=== PATIENT | male | born 1945 | race Caucasian/White ===

== ENCOUNTER 2019-07-22 10:18 | Outpatient (RCR) | payer MEDICARE, SELFPAY ==
[2019-05-02 13:51] LABS: INR 1.6; Prothrombin Time 18.8 Seconds (11.1-14.7)
[2019-05-12 14:42] LABS: INR 3.1; Prothrombin Time 31.3 Seconds (11.1-14.7)
[2019-05-20 15:46] LABS: INR 2.5; Prothrombin Time 26.4 Seconds (11.1-14.7)
[2019-06-20 14:46] LABS: INR 2.2
[2019-07-22 11:12] LABS: INR 2.2; Prothrombin Time 23.6 Seconds (11.1-14.7)
== END 2019-07-31 23:59 | disposition home or self-care (01) ==
LOC: ANHLAB 10:18
PROVIDERS: PCP Family Medicine; Visit Provider Family Medicine
DX: I48.91 Unspecified atrial fibrillation (principal)
CPT/HCPCS: 36415; 85610

== ENCOUNTER 2019-10-29 08:31 | Outpatient (RCR) | payer MEDICARE, SELFPAY ==
[2019-08-21 18:05] LABS: INR 1.9
[2019-09-01 09:24] LABS: INR 2.2; Prothrombin Time 23.8 Seconds (11.1-14.7)
[2019-09-15 08:57] LABS: INR 2.7
[2019-09-29 11:58] LABS: INR 2.7; Prothrombin Time 28.5 Seconds (11.1-14.7)
[2019-10-29 09:06] LABS: INR 2.4; Prothrombin Time 25.5 Seconds (11.1-14.7)
== END 2019-11-19 23:59 | disposition home or self-care (01) ==
LOC: ANHLAB 08:31
PROVIDERS: PCP Family Medicine; Visit Provider Family Medicine
DX: I48.91 Unspecified atrial fibrillation (principal); I48.92 Unspecified atrial flutter
CPT/HCPCS: 36415; 85610

== ENCOUNTER 2019-11-17 00:13 | Outpatient (CLI) | payer MEDICARE, SELFPAY ==
[2019-11-17 15:58] LABS: SARS-CoV-2 RNA PCR Negative
== END 2019-11-17 00:14 | disposition home or self-care (01) ==
LOC: ANHCOVIDDT 00:13
PROVIDERS: PCP Family Medicine; Visit Provider Plastic Surgery
DX: Z01.812 Encounter for preprocedural laboratory examination (principal); Z20.828 Contact with and (suspected) exposure to other viral communicable diseases
CPT/HCPCS: 87635; C9803; U0003

== ENCOUNTER 2019-11-19 00:36 | Day surgery (SDC) | payer MEDICARE, SELFPAY ==
[2019-08-14 10:54] VITALS: BMI 31.1
--- NOTE | 2019-10-23 10:08 | PC.NURSE ---
PT STATES NO CHANGE IN HEALTH HX SINCE LAST INTERVIEW ON 08/14/19
--- NOTE | 2019-11-12 09:51 | PC.NURSE ---
PT.STATES NO CHANGE IN MEDICAL,SURGICAL OR MEDICATIONS SINCE LAST INTERVIEW.
--- NOTE | 2019-11-18 20:45 | HP_ITS ---
DATE OF SERVICE: 11/19/2019 PREOPERATIVE DIAGNOSIS: Bilateral carpal tunnel syndrome, severe on the left. HISTORY: The patient is a 74-year-old, he is a right-hand dominant male presented in August with new complaints of carpal tunnel syndrome involving motor and sensory systems. He said he has had this for 6 or 7 years that involves the radial digits with numbness. Splint therapy has been tried and found to be insufficient. He has elected to go ahead with surgery on the left. He prefers local anesthetic and understands that the scar, there could be nerve injury, could be hematoma, infection, bruising, slow recovery of sensation, and a possible need for therapy he would like to proceed. ALLERGIES: HE IS NOT KNOWN TO BE ALLERGIC TO ANY MEDICATION. MEDICATION: His current medication list includes 1. Amlodipine. 2. Metoprolol. 3. Metformin. 4. Triamterene. 5. Hydrochlorothiazide. 6. Warfarin. 7. Simvastatin. 8. Flecainide. PAST SURGICAL HISTORY: Include laminectomy, total knee replacement on the right in 1993. He has had a peroneal nerve release in 1995. He has had a cyst removed. He is a nonsmoker. REVIEW OF SYSTEMS: Indicates atrial fibrillation, high blood pressure. Again, he has type 2 diabetes. FAMILY HISTORY: Noncontributory. SOCIAL HISTORY: Lives in [place]. He is retired from [employer]. PHYSICAL EXAMINATION: VITAL SIGNS: He is 6 feet tall, weighs 230 pounds. GENERAL: He is alert, cooperative, and informative. HEENT: Unremarkable. CHEST: Clear to auscultation. HEART: Regular rate and rhythm by palpation. ABDOMEN: Soft, nontender. EXTREMITY EXAM: Specifically reveals on the left thenar wasting, difficulty flexing his thumb, difficulty opposing the thumb and small finger. Wrist compression test was positive. ASSESSMENT: Bilateral carpal tunnel syndrome. PLAN: Left open carpal tunnel release under local anesthetic. D I MT: Farnaz
--- NOTE | 2019-11-19 07:20 | WPDHPUPDATE1 ---
History and Physical Update Update Date/Time: 11/19/19 07:20 History and Physical has been reviewed, including an updated exam of the patient. There are NO changes in the patient's condition. Risks, benefits, and alternatives have been discussed and questions answered. Patient agrees to proceed with procedure.
[2019-11-19 08:50] VITALS: BP 151/79; PULSE 70; RESP 20; TEMP 36.3; O2SAT 100
--- NOTE | 2019-11-19 09:03 | PM.OP ---
Procedure Note - Brief Procedure Note - Brief Date of procedure: 11/19/19 Pre-op diagnosis: Left Carpal Tunnel Syndrome Post-op diagnosis: same Procedure performed: LOCTR Anesthesia: local Surgeon: Jorge Holland MD Estimated blood loss (mL): 0 Drains: No Packing: No Pathology: none sent Complications: No immediate complications Condition: stable Disposition: same day
[2019-11-19] MEDS: LIDO 1%/EPINEPHRINE 1:100,000 20 ML VIAL 10 ML INFILTRATE (09:05)
[2019-11-19 09:11] VITALS: BP 158/95; PULSE 74; RESP 18; O2SAT 95
[2019-11-19 09:21] VITALS: BP 162/98; PULSE 74; RESP 18; O2SAT 95
[2019-11-19 09:31] VITALS: BP 156/102; PULSE 61; RESP 16; O2SAT 94
[2019-11-19 09:41] VITALS: BP 158/109; PULSE 63; RESP 18; O2SAT 95
--- NOTE | 2019-11-19 09:43 | PM.OP ---
Procedure Note - Brief Procedure Note - Brief Date of procedure: 11/19/19 Pre-op diagnosis: Left Carpal Tunnel Syndrome Post-op diagnosis: same Surgeon: Jorge Holland MD
[2019-11-19 09:46] VITALS: BP 132/81; PULSE 62; RESP 16; O2SAT 97
--- NOTE | 2019-11-19 09:49 | PM.PROC ---
Procedure Note - Detailed Date of procedure: 11/19/19 Pre-op diagnosis: Left Carpal Tunnel Syndrome Post-op diagnosis: same Description of procedure: The patient's hand was marked as healing in preop. He was rolled to the operating room and placed supine on the operating table. A time-out was held and confirmed. The extremity was prepped and draped in usual fashion. The marking was redone and the site locally infiltrated with 1% lidocaine with epinephrine. No tourniquet was used. The incision was made as marked and dissection was carried bluntly through the subcutaneous tissue to the palmar fascia. This and the carpal ligament were incised with a 15. Blade. The transverse carpal ligament was very robust. Under 3 point retraction the ligament was divided proximally and distally to completely release it. No unusual anatomy was noted. The wound was closed with interrupted 4-0 nylon suture. A small bandage was applied and he is discharged from the operating room instructions in wound care follow-up. He has a prescription for hydrocodone 5/ 10. Surgeon: Jorge Holland MD
== END 2019-11-19 09:56 | disposition home or self-care (01) ==
PROVIDERS: PCP Family Medicine; Visit Provider Plastic Surgery
PROC: (CPT 64721; principal; 2019-11-19 09:30)
DX: G56.02 Carpal tunnel syndrome, left upper limb (principal); I10 Essential (primary) hypertension; E11.9 Type 2 diabetes mellitus without complications; Z79.84 Long term (current) use of oral hypoglycemic drugs; I48.91 Unspecified atrial fibrillation; Z96.651 Presence of right artificial knee joint; Z79.01 Long term (current) use of anticoagulants; Z87.891 Personal history of nicotine dependence
CPT/HCPCS: 64721; A9270

== ENCOUNTER 2020-02-21 09:13 | Outpatient (RCR) | payer MEDICARE, SELFPAY ==
[2019-11-29 09:38] LABS: Prothrombin Time 22.1 Seconds (11.1-14.7)
[2019-12-29 14:36] LABS: INR 2.2; Prothrombin Time 23.8 Seconds (11.1-14.7)
[2020-01-29 13:19] LABS: INR 1.4; Prothrombin Time 16.5 Seconds (11.1-14.7)
[2020-02-05 17:59] LABS: INR 2.1; Prothrombin Time 22.8 Seconds (11.1-14.7)
[2020-02-21 09:43] LABS: INR 2.9; Prothrombin Time 29.5 Seconds (11.1-14.7)
== END 2020-02-27 23:59 | disposition home or self-care (01) ==
LOC: ANHLAB 09:13
PROVIDERS: PCP Family Medicine; Visit Provider Family Medicine
DX: I48.91 Unspecified atrial fibrillation (principal); I48.92 Unspecified atrial flutter
CPT/HCPCS: 36415; 85610

== ENCOUNTER 2020-03-16 08:48 | Outpatient (CLI) | payer MEDICARE, SELFPAY ==
--- NOTE | 2020-03-16 11:00 | NEURO_ITS ---
Patient Number: [id number] Impression: # Non-insulin dependent diabetic complains of increasing numbness of the hands. # Underlying neuropathy. # Superimposed Carpal Tunnel Syndrome bilaterally. 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 # Needle/EMG exam abnormal Nerve Conduction Studies Anti Sensory Summary Table Stim Site NR Peak (ms) P-T Amp (?V) Site1 Site2 Delta-P (ms) Dist (cm) Christiano (m/s) Left Median Anti Sensory (2-3nd Digit) NO RESPONSE Wrist NR Wrist 2-3nd Digit 14.0 Wrist NR Wrist 2-3nd Digit 14.0 Right Median Anti Sensory (2-3nd Digit) Wrist 6.6 9.8 Wrist 2-3nd Digit 6.6 14.0 21 Wrist 7.1 10.3 Wrist 2-3nd Digit 6.6 14.0 21 Left Radial Anti Sensory (Base 1st Digit) Wrist 2.5 6.8 Wrist Base 1st Digit 2.5 0.0 Right Radial Anti Sensory (Base 1st Digit) Wrist 3.0 4.5 Wrist Base 1st Digit 3.0 0.0 Left Ulnar Anti Sensory (5th Digit) Wrist 3.0 6.4 Wrist 5th Digit 3.0 14.0 47 Right Ulnar Anti Sensory (5th Digit) Wrist 3.1 4.4 Wrist 5th Digit 3.1 14.0 45 Motor Summary Table Stim Site NR Onset (ms) O-P Amp (mV) Site1 Site2 Delta-0 (ms) Dist (cm) Christiano (m/s) Left Median Motor (Abd Poll Brev) NO RESPONSE Wrist NR Elbow Wrist 26.0 Elbow NR Right Median Motor (Abd Poll Brev) NO RESPONSE Wrist NR Elbow Wrist 26.0 Elbow NR Left Ulnar Motor (Abd Dig Minimi) Wrist 2.9 5.4 A Elbow Wrist 6.6 31.0 47 A Elbow 9.5 4.2 B Elbow Wrist 4.8 25.0 52 B Elbow 7.7 4.0 Right Ulnar Motor (Abd Dig Minimi) Wrist 2.7 5.7 A Elbow Wrist 5.7 30.0 53 A Elbow 8.4 2.7 F Wave Studies NR F-Lat (ms) L-R F-Lat (ms) Left Median (Mrkrs) (Abd Poll Brev) NO RESPONSE NR Right Median (Mrkrs) (Abd Poll Brev) NO RESPONSE NR Left Ulnar (Mrkrs) (Abd Dig Min) 31.36 1.01 Right Ulnar (Mrkrs) (Abd Dig Min) 30.35 1.01 EMG Side Muscle Nerve Root Ins Act Fibs Amp Dur Recrt Comment Right 1stDorInt Ulnar C8-T1 Nml Nml Nml Nml Nml Right Ext Indicis Radial (Post Int) C7-8 Nml Nml Nml Nml Nml Right Ext Digitorum Radial (Post Int) C7-8 Nml Nml Nml Nml Nml Right BrachioRad Radial C5-6 Nml Nml Nml Nml Nml Right PronatorTeres Median C6-7 Nml Nml Nml Nml Nml Right Abd Poll Brev Median C8-T1 Nml Nml Nml >12ms Reduced Left 1stDorInt Ulnar C8-T1 Nml Nml Nml >12ms Reduced Left Ext Indicis Radial (Post Int) C7-8 Nml Nml Nml Nml Nml Left Ext Digitorum Radial (Post Int) C7-8 Nml Nml Nml Nml Nml Left BrachioRad Radial C5-6 Nml Nml Nml Nml Nml Left PronatorTeres Median C6-7 Nml Nml Nml Nml Nml Left Abd Poll Brev Median C8-T1 Nml Nml Nml >12ms Reduced Right ABD Dig Min Ulnar C8-T1 Nml Nml Nml Nml Nml Left ABD Dig Min Ulnar C8-T1 Nml Nml Nml >12ms Reduced Right Anconeus Radial C7-8 Nml Nml Nml Nml Nml Right Abd Poll Long Radial (Post Int) C7-8 Nml Nml Nml Nml Nml Left Anconeus Radial C7-8 Nml Nml Nml Nml Nml Left Abd Poll Long Radial (Post Int) C7-8 Nml Nml Nml Nml Nml MTDD
== END 2020-03-16 08:49 | disposition home or self-care (01) ==
PROVIDERS: PCP Family Medicine; Visit Provider Plastic Surgery
DX: R20.2 Paresthesia of skin (principal); G56.03 Carpal tunnel syndrome, bilateral upper limbs; G56.22 Lesion of ulnar nerve, left upper limb
CPT/HCPCS: 95886; 95911

== ENCOUNTER 2020-05-05 08:44 | Outpatient (RCR) | payer MEDICARE, SELFPAY ==
[2020-03-06 12:56] LABS: INR 2.2; Prothrombin Time 24.3 Seconds (11.1-14.7)
[2020-04-05 12:22] LABS: INR 2.1; Prothrombin Time 22.7 Seconds (11.1-14.7)
[2020-05-05 09:12] LABS: INR 2.5; Prothrombin Time 27.9 Seconds (11.1-14.7)
== END 2020-06-04 23:59 | disposition home or self-care (01) ==
LOC: ANHLAB 08:44
PROVIDERS: PCP Family Medicine; Visit Provider Family Medicine
DX: I48.91 Unspecified atrial fibrillation (principal); I48.92 Unspecified atrial flutter
CPT/HCPCS: 36415; 85610

== ENCOUNTER 2020-05-05 08:46 | Outpatient (CLI) | payer MEDICARE, SELFPAY ==
[2020-05-05 09:15] LABS: Alanine Aminotransferase 30 U/L (4-50); Albumin Level 4.3 g/dL (3.5-5.1); Alkaline Phosphatase 49 U/L (38-126); Anion Gap 9 mmol/L (8-16); Aspartate Amino Transferase 35 U/L (17-59); Bilirubin,Total 0.5 mg/dL (0.2-1.3); Blood Urea Nitrogen 26 mg/dL (9-20); Calcium 9.1 mg/dL (8.4-10.2); Carbon Dioxide 27 mmol/L (22-30); Chloride 102 mmol/L (98-107); Cholesterol 138 mg/dL (0-200); Estimated Glomerular Filt Rate > 60; Glucose 151 mg/dL (75-110); HDL Direct 41 mg/dL; Hemoglobin A1C 6.1 % (<5.7); Potassium 4.1 mmol/L (3.4-5.0); Sodium 138 mmol/L (137-145); Triglycerides 154 mg/dL (<150)
[2020-05-05 09:26] LABS: LDL Cholesterol Direct 63 mg/dL
[2020-05-05 09:29] LABS: Iron 73 ug/dL (49-181)
[2020-05-05 09:39] LABS: Percent Iron Saturation 23 % (20-50)
[2020-05-05 09:46] LABS: Prostate Specific Antigen 2.6 ng/mL (< OR = 4.0)
[2020-05-05 10:21] LABS: Folic Acid 10.8 ng/mL (2.76->20)
== END 2020-05-05 08:47 | disposition home or self-care (01) ==
PROVIDERS: PCP Family Medicine; Visit Provider Physician Assistant
DX: E78.5 Hyperlipidemia, unspecified (principal); Z00.00 Encounter for general adult medical examination without abnormal findings; I10 Essential (primary) hypertension; E11.42 Type 2 diabetes mellitus with diabetic polyneuropathy; Z12.5 Encounter for screening for malignant neoplasm of prostate
CPT/HCPCS: 36415; 80053; 80061; 82607; 82746; 83036; 83540; 83550; 84153; 84443; 85610; G0103

== ENCOUNTER 2020-08-13 11:34 | Outpatient (RCR) | payer MEDICARE, SELFPAY ==
[2020-06-15 09:22] LABS: INR 2.7; Prothrombin Time 29.6 Seconds (11.1-14.7)
[2020-07-16 13:29] LABS: INR 2.7; Prothrombin Time 28.8 Seconds (11.1-14.7)
[2020-08-13 11:58] LABS: Prothrombin Time 23.4 Seconds (11.1-14.7)
== END 2020-09-13 23:59 | disposition home or self-care (01) ==
LOC: ANHLAB 11:34
PROVIDERS: PCP Family Medicine; Visit Provider Family Medicine
DX: I48.91 Unspecified atrial fibrillation (principal); I48.92 Unspecified atrial flutter
CPT/HCPCS: 36415; 85610

== ENCOUNTER 2020-11-30 17:34 | Outpatient (RCR) | payer MEDICARE, SELFPAY ==
[2020-09-14 16:03] LABS: INR 2.6
[2020-10-14 17:51] LABS: INR 1.5; Prothrombin Time 18.4 Seconds (11.1-14.7)
[2020-10-29 14:15] LABS: INR 3.1; Prothrombin Time 32.3 Seconds (11.1-14.7)
[2020-11-15 11:22] LABS: INR 2.3; Prothrombin Time 26.2 Seconds (11.1-14.7)
[2020-11-30 18:12] LABS: Prothrombin Time 31.4 Seconds (11.1-14.7)
== END 2020-12-13 23:59 | disposition home or self-care (01) ==
LOC: ANHLAB 17:34
PROVIDERS: PCP Physician Assistant; Visit Provider Physician Assistant
DX: Z51.81 Encounter for therapeutic drug level monitoring (principal); I48.91 Unspecified atrial fibrillation; I48.92 Unspecified atrial flutter; I48.11 Longstanding persistent atrial fibrillation; Z79.01 Long term (current) use of anticoagulants
CPT/HCPCS: 36415; 85610

== ENCOUNTER 2021-01-31 07:56 | Outpatient (CLI) | payer MEDICARE, SELFPAY ==
[2021-01-31 08:56] LABS: Alanine Aminotransferase 23 U/L (4-50); Albumin Level 4.4 g/dL (3.5-5.1); Alkaline Phosphatase 60 U/L (38-126); Anion Gap 7 mmol/L (8-16); Aspartate Amino Transferase 29 U/L (17-59); Bilirubin,Total 0.7 mg/dL (0.2-1.3); Blood Urea Nitrogen 21 mg/dL (9-20); Calcium 8.9 mg/dL (8.4-10.2); Carbon Dioxide 24 mmol/L (22-30); Chloride 104 mmol/L (98-107); Cholesterol 171 mg/dL (0-200); Estimated Glomerular Filt Rate 59; Glucose 143 mg/dL (65-110); HDL Direct 46 mg/dL; Potassium 3.8 mmol/L (3.4-5.0); Sodium 135 mmol/L (137-145); Triglycerides 162 mg/dL (<150)
[2021-01-31 09:07] LABS: LDL Cholesterol Direct 71 mg/dL
[2021-01-31 09:25] LABS: Prostate Specific Antigen 2.8 ng/mL (< OR = 4.0)
[2021-01-31 10:02] LABS: Hemoglobin A1C 6.6 % (<5.7)
[2021-01-31 10:17] LABS: Creatinine Urine 127.4 mg/dL
[2021-01-31 10:21] LABS: MALB Creatinine Ratio 26.9 mg/g (0-30); Microalbumin Urine Random 34.3 mg/L (0-16.7)
== END 2021-01-31 07:57 | disposition home or self-care (01) ==
PROVIDERS: PCP Family Medicine; Visit Provider Physician Assistant
DX: E11.42 Type 2 diabetes mellitus with diabetic polyneuropathy (principal); I10 Essential (primary) hypertension; E78.5 Hyperlipidemia, unspecified; Z12.5 Encounter for screening for malignant neoplasm of prostate
CPT/HCPCS: 36415; 80053; 80061; 82043; 83036; 84153; 85610; G0103

== ENCOUNTER 2021-03-03 09:55 | Outpatient (RCR) | payer MEDICARE, SELFPAY ==
[2020-12-15 14:38] LABS: INR 2.6; Prothrombin Time 27.2 Seconds (11.1-14.7)
[2020-12-30 12:14] LABS: INR 2.2; Prothrombin Time 23.7 Seconds (11.1-14.7)
[2021-01-31 09:01] LABS: INR 2.8
[2021-03-03 10:23] LABS: INR 1.3; Prothrombin Time 15.5 Seconds (11.1-14.7)
== END 2021-03-15 23:59 | disposition home or self-care (01) ==
LOC: ANHLAB 09:55
PROVIDERS: PCP Physician Assistant; Visit Provider Physician Assistant
DX: Z51.81 Encounter for therapeutic drug level monitoring (principal); I48.11 Longstanding persistent atrial fibrillation; Z79.01 Long term (current) use of anticoagulants
CPT/HCPCS: 36415; 85610

== ENCOUNTER 2021-04-27 10:36 | Outpatient (CLI) | payer MEDICARE, SELFPAY ==
--- NOTE | ~2021-04-27 | MR_ITS ---
EXAMINATION: MR lumbar spine wo [facility] EXAM DATE: 04/27/2021 11:53 INDICATION: M54.50 - Low back pain, unspecified . TECHNIQUE: Multi-sequential, multiplanar MR images of the lumbar spine were obtained without contrast . Sagittal T1, T2, T2 fat saturation images. Axial T2 weighted images. Comparison is made to prior examination from 12/01/2018. FINDINGS: Surgical changes, L3-L5 laminectomies. Mild to moderate lumbar levoscoliosis. There is mode rate disc disease L2-3 and L3-4, mild to moderate at L4-5. The conus medullaris terminates at the T12 -L1 level and has normal signal intensity and morphology. There is small nodule of soft tissue along the cauda equina posterior to the L2 vertebral body measuring 4 mm, unchanged. Mild loss of the L2-fo r vertebral body heights without acute compression fracture. There is large hemangioma within the L3 vertebral body. There is mild to moderate right renal atrophy. Paraspinal soft tissue is unremarkable . Level by level evaluation: T12-L1: There is a mild diffuse disc bulge. Facet arthropathy: Moderate. Neural foraminal stenosis: No stenosis. Central canal stenosis: No stenosis. L1-L2: There is a mild diffuse disc bulge. Facet arthropathy: Moderate. Neural foraminal stenosis: No stenosis. Central canal stenosis: No stenosis. L2-3: There is a moderate diffuse disc bulge. Facet arthropathy: Moderate . Ligamentum flavum enlargement. Neural foraminal stenosis: Moderate to severe left, moderate right. Central canal stenosis: Moderate to severe, particularly left lateral recess. L3-4: There is a moderate diffuse disc bulge. Facet arthropathy: Moderate. Neural foraminal stenosis: Moderate to severe right bilateral, right greater than left. Central canal stenosis: Posterior decompression, laminectomies. L4-L5: There is a moderate diffuse disc bulge. Facet arthropathy: Moderate. Neural foraminal stenosis: Severe right, moderate to severe left. Central canal stenosis: Posterior decompression, laminectomies. L5-S1: There is a minimal diffuse disc bulge. Facet arthropathy: Mild to moderate. Neural foraminal stenosis: Minimal bilateral. Central canal stenosis: Posterior decompression, laminectomies. Possible slight interval progression compared to prior study. IMPRESSION: 1. 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 2. Advanced mid lumbar spondylosis. Right L4-5 neural foramina most narrowed on exam. 3. Mild to moderate scoliosis. Reviewed, dictated and finalized at location B. ECT MANAGEMENT SPECIALIST IMPRESSION: 1. 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 2. Advanced mid lumbar spondylosis. Right L4-5 neural foramina most narrowed o n exam. 3. Mild to moderate scoliosis.
== END 2021-04-27 10:37 | disposition home or self-care (01) ==
LOC: ANHIMG 10:41
PROVIDERS: PCP Family Medicine; Visit Provider Family Medicine
DX: M47.896 Other spondylosis, lumbar region (principal); M41.9 Scoliosis, unspecified
CPT/HCPCS: 72148

== ENCOUNTER 2021-05-19 15:43 | Outpatient (CLI) | payer MEDICARE, SELFPAY ==
--- NOTE | ~2021-05-19 | MR_ITS ---
EXAMINATION: MR lumbar spine wo/w con DATE: 05/19/2021 16:51 INDICATION: Lumbar degenerative disc disease. Chronic low back pain. Neuropathy. Right-sided sciatica . TECHNIQUE: Magnetic resonance imaging (MRI) of the lumbar spine was performed without and with 20 mL MultiHance intravenous contrast. Sequences included sagittal T2-weighted FSE, sagittal T2-weighted FS FSE, and sagittal and axial T1-weighted FSE. Postcontrast sequences included axial T2-weighted FSE a nd axial and sagittal T1-weighted FS FSE. COMPARISON: Lumbar spine MRI 04/27/2021, 12/01/2018, chest CT 09/15/2005 FINDINGS: There is 17 degrees dextroscoliosis of lumbar spine. There are 12 pairs of ribs. S1 is a tr ansitional segment. There are hemangiomas in L1, L2, and L4 vertebral bodies. There is severely decre ased disc height at L3-L4 and L4-L5 and mildly decreased disc height at L5-S1 with endplate remodelin g. The distal spinal cord signal intensity is normal. The conus medullaris is at L1. 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 The following disc levels are specifically discussed: L1-L2: The disc does not extend beyond the endplate margin. There is severe bilateral facet joint ost eoarthritis. There is mild left neural foraminal stenosis. There is mild central canal stenosis. L2-L3: The disc is mildly bulging. There is severe bilateral facet joint osteoarthritis. There is mil d bilateral neural foraminal stenosis. There is no central canal stenosis. L3-L4: The disc is bulging and has an annular fissure. There is severe bilateral facet joint osteoart hritis. There is moderate bilateral neural foraminal stenosis. There is mild central canal stenosis. There is severe stenosis of left lateral recess. L4-L5: The disc is bulging and has an annular fissure. There is severe bilateral facet joint osteoart hritis. There is moderate bilateral neural foraminal stenosis. There is mild central canal stenosis w ith posterior decompression. L5-S1: The disc is bulging and has an annular fissure. There is severe bilateral facet joint osteoart hritis. There is moderate bilateral neural foraminal stenosis. There is mild central canal stenosis w ith posterior decompression. IMPRESSION: 1. Severe lumbar spondylosis, stable from 12/01/2018. 2. 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 3. Lumbar dextroscoliosis. Reviewed, dictated and finalized at location A. L MAINTENANCE TECHNICIAN IMPRESSION: 1. Severe lumbar spondylosis, stable from 12/01/2018. 2. 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 3. Lumbar dextroscoliosis.
[2021-05-19 16:13] LABS: Estimated Glomerular Filt Rate 50
== END 2021-05-19 15:44 | disposition home or self-care (01) ==
LOC: ANHIMG 15:47
PROVIDERS: PCP Family Medicine
DX: M51.36 Other intervertebral disc degeneration, lumbar region (principal); M54.41 Lumbago with sciatica, right side; G89.29 Other chronic pain; M48.062 Spinal stenosis, lumbar region with neurogenic claudication; D33.4 Benign neoplasm of spinal cord; M47.896 Other spondylosis, lumbar region
CPT/HCPCS: 72158; A9577

== ENCOUNTER 2021-05-28 11:08 | Outpatient (CLI) | payer MEDICARE, SELFPAY ==
--- NOTE | ~2021-05-28 | DEXA_ITS ---
Bone Density Report Name: JEFF WAKEFIELD Age: 75 Sex: Male Ethnicity: White Date of : 1945 Indication: osteoporosis, pathological fracture Referring Provider: UNKNOWN, UNKNOWN Study: Bone densitometry was performed. Exam Date: May 28, 2021 Accession number: [id number] Bone Density: Region BMD T-score Z-score Classification AP Spine (L1-L4) 1.448 3.2 4.3 Normal Femoral Neck (Left) 1.048 0.9 2.2 Normal Total Hip (Left) 1.238 1.4 2.2 Normal Total Hip Bilateral Avg 1.230 1.3 2.1 Normal Femoral Neck (Right) 1.083 1.1 2.4 Normal Total Hip (Right) 1.221 1.2 2.0 Normal World Health Organization criteria for BMD impression classify patients as: Normal (T-score at or above -1.0), Osteopenia (T-score between -1.0 and -2.5), or Osteoporosis (T-score at or below -2.5). 10-year Fracture Risk: FRAX not reported because: All T-scores for Spine Total, Hip Total, Femoral Neck at or above -1.0 Clinical Information Provided by Patient: Patient maximum height was 72 No regular weight bearing exercise Impression: The patient has normal bone mass. Discussion: LOW RISK OF FRACTURE; BONE DENSITY IS WELL ABOVE THE MINIMUM DESIRABLE LEVEL AND ABOVE AVERAGE FOR AGE AND SEX AT ALL SKELETAL SITES TESTED. This person's bone density is above expected limits for age and sex. This is rarely clinically significant, but should be pursued if there are significant musculoskeletal complaints. The patient should follow a healthful lifestyle (good nutrition with adequate calcium and vitamin D, and appropriate weight-bearing exercise). Follow-Up: Consider repeating this study in 5 years or sooner if there is some new clinical indication. Reported by: [facility] on 05/28/2021 11:23:00 AM. Reviewed, dictated and finalized at location A. [facility]
== END 2021-05-28 11:09 | disposition home or self-care (01) ==
PROVIDERS: PCP Family Medicine
DX: M81.6 Localized osteoporosis [Lequesne] (principal); M41.9 Scoliosis, unspecified; M47.896 Other spondylosis, lumbar region
CPT/HCPCS: 77080

== ENCOUNTER 2022-02-02 07:49 | Outpatient (CLI) | payer MEDICARE, SELFPAY ==
[2022-02-02 08:23] LABS: Creatinine Urine 102.4 mg/dL
[2022-02-02 08:23] LABS: Alanine Aminotransferase 19 U/L (6-50); Albumin Level 4.7 g/dL (3.5-5.1); Alkaline Phosphatase 64 U/L (38-126); Anion Gap 12 mmol/L (8-16); Aspartate Amino Transferase 24 U/L (17-59); Bilirubin,Total 0.7 mg/dL (0.2-1.3); Blood Urea Nitrogen 21 mg/dL (9-20); Carbon Dioxide 26 mmol/L (22-30); Chloride 100 mmol/L (98-107); Cholesterol 144 mg/dL (0-200); Estimated Glomerular Filt Rate 54; Glucose 144 mg/dL (65-110); HDL Direct 45 mg/dL; Potassium 3.8 mmol/L (3.4-5.0); Sodium 138 mmol/L (137-145); Triglycerides 113 mg/dL (<150)
[2022-02-02 08:30] LABS: MALB Creatinine Ratio 33.2 mg/g (0-30)
[2022-02-02 08:34] LABS: LDL Cholesterol Direct 56 mg/dL
[2022-02-02 09:00] LABS: Hematocrit 44.4 % (42.0-52.0); Hemoglobin 14.8 g/dL (14.0-18.0); Mean Corpuscular HGB Conc 33.3 g/dl (32-36); Mean Corpuscular Hemoglobin 29.7 pg (26-34); Platelet Count Result 199 k/mm3 (150-375); Red Blood Count 4.99 M/mm3 (4.6-6.20); Red Cell Distribution Width 13.7 % (11.5-14.5); White Blood Count 5.5 K/mm3 (4.5-10.0)
[2022-02-02 10:06] LABS: Hemoglobin A1C 6.2 % (<5.7)
== END 2022-02-02 07:50 | disposition home or self-care (01) ==
LOC: ANHLAB 07:55
PROVIDERS: PCP Family Medicine; Visit Provider Physician Assistant Medical
DX: R53.83 Other fatigue (principal); E78.2 Mixed hyperlipidemia; E11.42 Type 2 diabetes mellitus with diabetic polyneuropathy
CPT/HCPCS: 36415; 80053; 80061; 82043; 83036; 85027

== ENCOUNTER 2022-11-15 08:22 | Outpatient (CLI) | payer MEDICARE, SELFPAY ==
[2022-11-15 08:57] LABS: Alanine Aminotransferase 26 U/L (6-50); Albumin Level 4.3 g/dL (3.5-5.1); Alkaline Phosphatase 56 U/L (38-126); Anion Gap 8 mmol/L (8-16); Aspartate Amino Transferase 29 U/L (17-59); Bilirubin,Total 0.6 mg/dL (0.2-1.3); Blood Urea Nitrogen 23 mg/dL (9-20); Calcium 8.8 mg/dL (8.4-10.2); Carbon Dioxide 27 mmol/L (22-30); Chloride 100 mmol/L (98-107); Cholesterol 150 mg/dL (0-200); Estimated Glomerular Filt Rate > 60; Glucose 171 mg/dL (65-110); HDL Direct 42 mg/dL; Sodium 135 mmol/L (137-145); Triglycerides 150 mg/dL (<150)
[2022-11-15 09:08] LABS: Hemoglobin A1C 7.3 % (<5.7); LDL Cholesterol Direct 73 mg/dL
[2022-11-15 09:20] LABS: Creatinine Urine 141.6 mg/dL
[2022-11-15 09:27] LABS: MALB Creatinine Ratio 56.7 mg/g (0-30); Microalbumin Urine Random 80.3 mg/L (0-16.7)
== END 2022-11-15 08:23 | disposition home or self-care (01) ==
PROVIDERS: Physician Assistant; PCP Family Medicine; Visit Provider Physician Assistant Medical
DX: E78.2 Mixed hyperlipidemia (principal); E11.42 Type 2 diabetes mellitus with diabetic polyneuropathy; E53.8 Deficiency of other specified B group vitamins
CPT/HCPCS: 36415; 80053; 80061; 82043; 82607; 83036

== ENCOUNTER 2023-01-30 07:27 | Outpatient (CLI) | payer MEDICARE, SELFPAY ==
[2023-01-30 08:08] LABS: Chloride 100 mmol/L (98-107)
[2023-01-30 08:15] LABS: Alanine Aminotransferase 24 U/L (6-50); Albumin Level 4.4 g/dL (3.5-5.1); Alkaline Phosphatase 57 U/L (38-126); Anion Gap 14 mmol/L (8-16); Aspartate Amino Transferase 27 U/L (17-59); Bilirubin,Total 0.7 mg/dL (0.2-1.3); Blood Urea Nitrogen 21 mg/dL (9-20); Carbon Dioxide 22 mmol/L (22-30); Cholesterol 158 mg/dL (0-200); Estimated Glomerular Filt Rate > 60; Glucose 197 mg/dL (65-110); HDL Direct 40 mg/dL; Potassium 3.7 mmol/L (3.4-5.0); Sodium 136 mmol/L (137-145); Triglycerides 133 mg/dL (<150)
[2023-01-30 08:20] LABS: LDL Cholesterol Direct 83 mg/dL
[2023-01-30 08:30] LABS: Hemoglobin A1C 7.1 % (<5.7)
== END 2023-01-30 07:28 | disposition home or self-care (01) ==
PROVIDERS: PCP Family Medicine; Visit Provider Physician Assistant Medical
DX: E78.2 Mixed hyperlipidemia (principal); R73.03 Prediabetes; E53.8 Deficiency of other specified B group vitamins
CPT/HCPCS: 36415; 80053; 80061; 82607; 83036

== ENCOUNTER 2023-12-12 15:05 | Outpatient (CLI) | payer MEDICARE, SELFPAY ==
[2023-12-12 16:18] LABS: Alanine Aminotransferase 20 U/L (6-50); Albumin Level 4.6 g/dL (3.5-5.1); Alkaline Phosphatase 59 U/L (38-126); Anion Gap 11 mmol/L (4-12); Aspartate Amino Transferase 26 U/L (17-59); Bilirubin,Total 0.7 mg/dL (0.2-1.3); Blood Urea Nitrogen 22 mg/dL (9-20); Carbon Dioxide 23 mmol/L (22-30); Chloride 103 mmol/L (98-107); Estimated Glomerular Filt Rate > 60; Glucose 160 mg/dL (65-110); Potassium 3.8 mmol/L (3.4-5.0); Sodium 137 mmol/L (137-145)
[2023-12-12 16:39] LABS: Hemoglobin A1C 7.7 % (<5.7)
== END 2023-12-12 15:06 | disposition home or self-care (01) ==
LOC: ANHLAB 15:08
PROVIDERS: PCP Family Medicine; Visit Provider Family Medicine
DX: E11.9 Type 2 diabetes mellitus without complications (principal)
CPT/HCPCS: 36415; 80053; 83036

== ENCOUNTER 2025-01-12 07:57 | Outpatient (CLI) | payer MEDICARE, SELFPAY ==
--- OUTSIDE RECORDS SUMMARY | 2025-01-12 08:02 | XMS_ITS | Clinical Summary ---
Author Organization [facility] [address] Address [address] [place] [address] Care Team Providers Care Mathematics Teacher Name Role Phone Martine Starr MD Primary Care Provider [phone] Allergies No known active allergies Medications metoprolol XL (TOPROL-XL) 50 mg 24 hr tablet TAKE 1 TABLET DAILY 90 2 07/16/2012 Active simvastatin (ZOCOR) 20 mg tablet take 1 tablet (20MG) by oral route every day in the evening 0 05/11/2012 Active triamterene-hyd roCHLOROthiazid e (MAXZIDE,DYAZID E) 37.5-25 mg per tablet take 1 tablet by oral route every day 0 05/11/2012 Active metFORMIN (GLUCOPHAGE) 500 mg tablet take 2 Tablet by oral route 2 times every day with morning and evening meals 0 0 04/15/2013 Active amlodipine-jaspal zepril (LOTREL) 10-40 mg per capsule take 1 capsule by oral route every day 0 0 04/21/2014 Active Eliquis 5 mg tablet 05/21/2021 Active Januvia 100 mg tablet Take 1 tablet (100 mg total) by mouth daily 03/14/2024 Active Accu-Chek Snehal Plus test strp strip USE TO TEST BLOOD SUGAR ONCE DAILY 08/12/2024 Active Active Problems Problem Noted Date Diagnosed Date Hypertension associated with diabetes 05/08/2017 Mixed diabetic hyperlipidemi a associated with type 2 diabetes mellitus ([facility]) 10/18/2015 Overview (09/14/2016): DM type 2 with diabetic dyslipidemia Chronic anticoagulation 04/19/2015 Overview (09/14/2016): Chronic anticoagulation Atrial fibrillation 04/21/2014 Overview (09/14/2016): Atrial fibrillation Resolved Problems Problem Noted Date Diagnosed Date Resolved Date Encounter for therapeutic drug monitoring 05/08/2017 01/25/2022 Encounters Date Type Department Care Team Description 11/11/2024 8:15 AM CDT Office Visit [facility] [address] [place] [id number] Bashir Bach MD Mixed diabetic hyperlipidemia associated with type 2 diabetes mellitus (CMS/HCC) (HCC) (Primary Dx); Hypertension associated with diabetes (HCC); Longstanding persistent atrial fibrillation (HCC); Chronic anticoagulation from Last 3 Months Surgical History Surgery Date Site/Laterality Comments OTHER SURGICAL HISTORY R. TKR, R. peroneal nerve release, back surgery Medical History Medical History Date Comments Hx Other Medical afib, dm, htn, hld, obese, former smoker, R. drop Arrhythmia Atrial fibrillation (HCC) Hypertension Hyperlipidemia Diabetes mellitus (HCC) Osteoarthritis Lumbar herniated disc Spinal stenosis Scoliosis Family History Medical History Relation Name Comments Heart failure Father 2 Congestive Hea rt Failure; Relation Name Status Comments Father 1 Alive Father 2 Social History Tobacco Use Types Packs/Day Years Used Date Smoking Tobacco: Former Smokeless Tobacco: Current Alcohol Use Standard Drinks/Week Comments Yes 0 (1 standard drink = 0.6 oz pur e alcohol) PHQ-2 Answer Date Recorded PHQ-2 Score 0 05/15/2019 Sex and Gender Information Value Date Recorded Sex Assigned at Not on file 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 Gender Identity Not on file Sexual Orientation Not on file Obstetrics History Last Filed Vital Signs Vital Sign Reading Time Taken Comments Blood Pressure 112/68 11/11/2024 8:09 AM CDT Pulse 60 11/11/2024 8:09 AM CDT Temperature 36.6 C (97.8 F) 01/08/2020 1:23 PM CDT Respiratory Rate - - Oxygen Saturation 99% 11/11/2024 8:09 AM CDT Inhaled Oxygen Concentration - - Weight 101.9 kg (224 lb 9.6 oz) 11/11/2024 8:09 AM CDT Height 185.4 cm (6' 1) 11/11/2024 8:09 AM CDT Body Mass Index 29.63 11/11/2024 8:09 AM CDT Plan of Treatment Health Maintenance Due Date Last Done Comments Albumin Creatinine Ratio, Urine 1945 Fall Risk Assessment 1945 Hemoglobin A1C 1945 Hepatitis C Screening 1945 eGFR 1945 Dilated Eye Exam 1945 Foot Exam 1945 Hepatitis B Screening 1964 Zoster Vaccine (1 of 2) 1996 Abdominal Aortic Aneurysm (A AA) Screen 11/06/2011 Well Visit 65+ 11/06/2011 Pneumococcal vaccine 65+ (2 of 2 - PCV) 08/07/2014 08/07/2013 Depression Screening 05/15/2020 05/15/2019 Covid-19 Vaccine (3 - 2023-2 5 season) 2024 08/28/2020, 08/06/2020 Lipid Panel 09/24/2024 09/25/2023, 04/0 08/2022, 06/28/2021, Additional history exists Influenza Vaccine (#1) 2025 04/23/2017 DTaP/Tdap/Td Vaccine (2 - Td or Tdap) 03/26/2028 03/26/2018, 11/25/2007 Procedures Procedure Name Priority Date/Time Associated Diagnosis Comments POCT LIPID PANEL Routine 09/25/2023 10:1 0 AM CDT Mixed diabetic hyperlipidemia associated with type 2 diabetes mellitus ([facility]/HCC) ([facility]) from Last 3 Months or Most Recently Relevant to Health Maintenance Results * POCT lipid panel (09/25/2023 10:10 AM CDT) Cholesterol, POC 149 mg/dL Comment:GLU = 149 HDL, POC 36 mg/dL Triglycerides, POC 161 mg/dL LDL Cholesterol POC 81 mg/dL Chol/HDL Ratio, POC 2.3 Non-HDL Cholesterol, POC 113 mg/dL Cholesterol Total, POC 149 mg/dL Capillary blood 09/25/2023 1 0:10 AM CDT Abad Gutierrez MD POINT OF CARE TEST ORDER ALEXANDER Final Result from Last 3 Months or Most Recently Relevant to Health Maintenance Insurance [facility] [employer]ET[employer] MEDICARE Care Teams Mathematics Teacher Relationship Specialty Start Date End Date Martine Starr MD PCP - General Family Medicine 06/28/21
--- OUTSIDE RECORDS SUMMARY | 2025-01-12 08:02 | XMS_ITS | Clinical Summary ---
Author Organization [facility] Address [address] [address] Care Team Providers Care Printed Circuit Boards Laminator Name Role Phone Lucila Dale MD Primary Care Provider [phone] Abad Gutierrez MD Unavailable [phone] Source Comments [facility],non-owned Affiliates and Associated Physician Practices is amultiple site organization consisting of ambulatory clinics and hospital sitesin [place], [place], [place] and [place]. This disclosure is being madepursuant to the Care Everywhere program and may not contain all information available regarding this patient. Last updated 18.[facility] Allergies No known active allergies Medications * Be aware that medications may not be up to date on this document. Alwaysverify current medications with the patient. amLODIPine besy-benazepril 10-40 MG Active metoprolol succinate XL 24hr (TOPROL XL) 50 MG tablet Take 50 mg by mouth once daily Active metFORMIN (GLUCOPHAGE) 500 MG tablet Take 1,000 mg by mouth 2 times daily with morning and evening meal Active triamterene-hyd roCHLOROthiazid e (MAXZIDE-25) 37.5-25 MG tablet Take 1 tablet by mouth once daily Active warfarin (COUMADIN) 1 MG tablet Take 1 mg by mouth Active warfarin (COUMADIN) 6 MG tablet Take 6 mg by mouth Active simvastatin (ZOCOR) 20 MG tablet Take 20 mg by mouth at bedtime Active flecainide (TAMBOCOR) 150 MG tablet Take 150 mg by mouth once daily Active enoxaparin (LOVENOX) injection 02/04/2019 Active apixaban (ELIQUIS) 5 MG tablet Take 1 tablet by mouth 2 times daily 02/22/2021 Active Active Problems Problem Noted Date Diagnosed Date Degenerative disc disease, lumbar 01/10/2019 Lumbosacral spondylosis 01/10/2019 Lumbar radiculopathy Social History Tobacco Use Types Packs/Day Years Used Date Smoking Tobacco: Never Smokeless Tobacco: Current Chew Sex and Gender Information Value Date Recorded Sex Assigned at Not on file Legal Sex Male 1:07 PM CDT Gender Identity Not on file Sexual Orientation Not on file Last Filed Vital Signs Vital Sign Reading Time Taken Comments Blood Pressure 136/92 08/23/2021 12:57 PM CDT Pulse 76 08/23/2021 12:57 PM CDT Temperature 36.4 C (97.6 F) 08/23/2021 12:57 PM CDT Respiratory Rate 16 08/23/2021 12:57 PM CDT Oxygen Saturation 99% 07/20/2021 11:42 AM HOST/HOSTESS GROUND Inhaled Oxygen Concentration - - Weight 104.3 kg (230 lb) 05/20/2021 10:19 AM HOST/HOSTESS GROUND Height 182.9 cm (6') 05/20/2021 10:19 AM HOST/HOSTESS GROUND Body Mass Index 31.19 05/20/2021 10:19 AM HOST/HOSTESS GROUND Plan of Treatment Health Maintenance Due Date Last Done Comments HEPATITIS C SCREENING 10/31/1963 DTAP/TDAP/TD VACCINES (1 - Tdap) 1965 PNEUMOCOCCAL VACCINE 50+ (1 of 1 - PCV) 1996 ZOSTER VACCINE (1 of 2) 1996 Respiratory Syncytial Virus (RSV) Vaccine Pt: or over 60 yrs (1 - 1-dose 75+ series) 2021 COVID-19 VACCINE (3 - 2023-2 5 season) 2024 08/28/2020, 08/06/2020 DEPRESSION SCREENING 06/11/2024 MEDICARE AWV CALENDAR YEAR 2024 INFLUENZA VACCINE (#1) 2025 HEPATITIS B VACCINE Aged Out No longe r eligible based on patient's age to complete this topic HIB VACCINE Aged Out No longer eligi ble based on patient's age to complete this topic HPV VACCINE Aged Out No longer eligi ble based on patient's age to complete this topic MENINGOCOCCAL (Group B) VACCINE SHARED DECISION-MAKING Aged Out No longer eligible based on patient's age to complete this topic MENINGOCOCCAL GROUPS A/C/Y/W VACCINE Aged Out No longer eligible b ased on patient's age to complete this topic Insurance MANAGED MEDICARE ADV MANAGED MEDICARE ADV Care Teams Printed Circuit Boards Laminator Relationship Specialty Start Date End Date Lucila Dale MD PCP - General Family Medicine 01/10/19 Abad Gutierrez MD [address] [place] [address] Cardiovascular Disease 05/20/21
--- OUTSIDE RECORDS SUMMARY | 2025-01-12 08:02 | XMS_ITS | Encounter Summary ---
Author Organization [facility] Health Address [address] [place] [address] Care Team Providers Care Director Of Science Name Role Phone Lucila Dale MD Primary Care Provider + [phone] Martine Starr MD Unavailable Abad Gutierrez MD Unavailable [phone] Encounter Details Date Type Department Care Team (Late st Contact Info) Description 05/20/2021 [facility] Outpatient Visit [facility] [address] [place] [address] Jay Manuel MD [address] [place] [address] Social History Tobacco Use Types Packs/Day Years Used Date Smoking Tobacco: Never Smokeless Tobacco: Current Chew Sex and Gender Information Value Date Recorded Sex Assigned at Not on file Legal Sex Male 1:07 PM CDT Gender Identity Not on file Sexual Orientation Not on file documented as of this encounter Plan of Treatment Not on file documented as of this encounter Visit Diagnoses Not on filedocumented in this encounter Care Teams Director Of Science Relationship Specialty Start Date End Date Lucila Dale MD PCP - General Family Medicine 01/10/19 Martine Starr MD [address] [place], [place] [id number] Family Medicine 05/20/21 05/20/21 Abad Gutierrez MD [address] [facility] [address] [place] [address] Cardiovascular Disease 05/20/21 documented as of this encounter
--- OUTSIDE RECORDS SUMMARY | 2025-01-12 08:02 | XMS_ITS | Referral Summary ---
Author Organization [facility] [place] [address] [facility] [address] Address [address] [place] [address] Care Team Providers Care Industrial Hygiene Engineer Name Role Phone Martine Starr MD Primary Care Provider [phone] Encounters Date Type Department Care Team Description 11/11/2024 8:15 AM CDT Office Visit [facility] Card[facility] [address] [facility] [address] [place] [address] Bashir Bach MD Mixed diabetic hyperlipidemia associated with type 2 diabetes mellitus (CMS/HCC) (HCC) (Primary Dx); Hypertension associated with diabetes (HCC); Longstanding persistent atrial fibrillation (HCC); Chronic anticoagulation from Last 3 Months Allergies No known active allergies Medications metoprolol [...] a associated with type 2 diabetes mellitus ([facility]) 10/18/2015 Overview (09/14/2016): DM type 2 with diabetic dyslipidemia Chronic anticoagulation 04/19/2015 Overview (09/14/2016): Chronic anticoagulation Atrial fibrillation 04/21/2014 Overview (09/14/2016): Atrial fibrillation Resolved Problems Problem Noted Date Diagnosed Date Resolved Date Encounter for therapeutic drug monitoring 05/08/2017 01/25/2022 Social History Tobacco Use Types Packs/Day Years Used Date Smoking Tobacco: Former Smokeless Tobacco: Current Alcohol Use Standard Drinks/Week Comments Yes 0 (1 standard drink = 0.6 oz pur e alcohol) PHQ-2 Answer Date Recorded PHQ-2 Score 0 05/15/2019 Sex and Gender Information Value Date Recorded Sex Assigned at Not on file 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 Gender Identity Not on file Sexual Orientation [...] 11/11/2024 8:09 AM CDT Plan of Treatment Not on file Procedures Procedure Name Priority Date/Time Associated Diagnosis Comments POCT LIPID PANEL Routine 09/25/2023 10:1 0 AM CDT Mixed diabetic hyperlipidemia associated with type 2 diabetes mellitus ([facility]) ([facility]) from Last 3 Months or Most Recently [...] Most Recently Relevant to Health Maintenance Insurance [facility] MEDICARE [facility] MEDICARE Care Teams Industrial Hygiene Engineer Relationship Specialty Start Date End Date Martine Starr MD PCP - General Family Medicine 06/28/21
--- OUTSIDE RECORDS SUMMARY | 2025-01-12 08:02 | XMS_ITS | Clinical Summary ---
Author Organization [facility] Address [address] [place] [address] Phone Care Team Providers Care Cascade Operator Name Role Phone Malick Blum MD Primary Care Provider [phone] Enrico Gaytan DO Unavailable [phone] Allergies No known active allergies Medications polyethylene glycol (MIRALAX) Powder Use entire 255g bottle with 64oz of clear liquid as directed for colonoscopy prep. 255 g 0 6 Active Amlodipine Besy-Benazepril HCl 10-40 MG Capsule Take 1 Cap by mouth daily. Active metoprolol Succinate (TOPROL-XL) 50 MG TABLET SR 24 HR Take 50 mg by mouth daily. Active metFORMIN (GLUCOPHAGE) 1000 MG Tablet Take 2,000 mg by mouth daily. Active triamterene-hyd rochlorothiazid e (MAXZIDE) 37.5-25 MG Tablet Take 1 Tab by mouth daily. Active warfarin (COUMADIN) 1 MG Tablet Take 1 mg by mouth daily. Active simvastatin (ZOCOR) 20 MG Tablet Take 20 mg by mouth every evening. Active flecainide (TAMBOCOR) 150 MG Tablet Take 150 mg by mouth 2 times daily. Active Canagliflozin (INVOKANA) 100 MG Tablet Take 1 Tab by mouth daily. Active Immunizations Immunization Administration Dates Next Due Covid-19, Mrna, Lnp-s, Pf, 30 Mcg/0.3 Ml Dose (P fizer) 08/28/2020,08/06/2020 Family History Medical History Relation Name Comments Congestive Heart Failure Father Diabetes Father Relation Name Status Comments Father Social History Tobacco Use Types Packs/Day Years Used Date Smoking Tobacco: Former Alcohol Use Standard Drinks/Week Comments Yes 0 (1 standard drink = 0.6 oz pur e alcohol) socially Sex and Gender Information Value Date Recorded Sex Assigned at Not on file Legal Sex Male 2:51 PM CDT Gender Identity Not on file Sexual Orientation Not on file Plan of Treatment Health Maintenance Due Date Last Done Comments Hepatitis C Virus (HCV) Screening 1945 Zoster Immunization (1 of 2) 1996 Pneumococcal Immunization (5 0+ years) (2 of 2 - PCV) 08/07/2014 08/07/2013 Respiratory Syncytial Virus (RSV) Immunization (Adult) (1 - 1-dose 75+ series) 2021 SARS-COV-2 Immunization ( season) 2024 03/08/2021, 08/28/2020, 08/06/2020 Influenza Immunization (#1) 2025 10/0 01/2020, 04/23/2017 Pneumococcal Immunization Combined Discontinued 08/07/2013 Colonoscopy Discontinued 07/27/2016 Colorectal Cancer Screening Discontinued DTaP/Tdap/Td Immunization Discontinued 2017, 11/25/2007 TdaP Immunization Completed 03/26/2018 Cologuard Discontinued Hepatitis B Immunization Aged Out No longer eligible based on patient's age to complete this topic Human Papillomavirus (HPV) Immunization Aged Out No longer eligible based on patient's age to complete this topic Immunochemical Fecal Occult Blood Discontinued Meningococcal Immunization (ACWY) Aged Out No longer eligible based on patient's age to complete this topic Rotavirus Immunization Aged Out No lo nger eligible based on patient's age to complete this topic Procedures Procedure Name Priority Date/Time Associated Diagnosis Comments COLONOSCOPY Routine 07/27/2016 from Last 3 Months or Most Recently Relevant to Health Maintenance Results * COLONOSCOPY (07/27/2016) Malick Blum MD PROCEDURE/MINOR SURGICAL ORDE DEB Final Result from Last 3 Months or Most Recently Relevant to Health Maintenance Care Teams Cascade Operator Relationship Specialty Start Date End Date Malick Blum MD [address] [place] [address] PCP - General Family Medicine 04/07/16 Enrico Gaytan DO [address] [place] [address] Gastroenterology 07/31/16
--- OUTSIDE RECORDS SUMMARY | 2025-01-12 08:02 | XMS_ITS | Clinical Summary ---
Author Organization [facility] Address [address] [place] [address] Phone Care Team Providers Care Sports Lawyer Name Role Phone Martine Starr MD Primary Care Provider [phone] Allergies No known active allergies Medications amLODIPine-jaspal zepril (LOTREL) 10-40 mg capsule Take 1 Capsule by mouth daily. 02/16/2021 Active flecainide (TAMBOCOR) 150 mg Tablet Take 1 Tablet by mouth every 12 hours. 04/13/2021 Active metoprolol succinate (TOPROL XL) 50 mg Extended Release 24 hour tablet Take 1 Tablet by mouth daily. 03/23/2021 Active simvastatin (ZOCOR) 20 mg tablet Take 1 Tablet by mouth daily. 03/03/2021 Active triamterene-hyd roCHLOROthiazid e (DYAZIDE) 37.5-25 mg capsule Take 1 Capsule by mouth daily. 02/16/2021 Active Eliquis 5 mg tablet Take 1 Tablet by mouth 2 times daily. 02/22/2021 Active metFORMIN (GLUCOPHAGE) 500 mg tablet Take 2 Tablets by mouth 2 times daily with meals. Active Active Problems No known active problems Family History Medical History Relation Name Comments Diabetes Father Heart Disease Father High Cholesterol Father Hypertension Father No Known Problems Maternal Grandfather No Known Problems Maternal Grandmother No Known Problems Mother Cancer Paternal Grandfather No Known Problems Paternal Grandmother Relation Name Status Comments Father Maternal Grandfather Maternal Grandmother Mother Paternal Grandfather Paternal Grandmother Social History Tobacco Use Types Packs/Day Years Used Date Smoking Tobacco: Never Smokeless Tobacco: Current Chew Comments:Chew Alcohol Use Standard Drinks/Week Comments Yes 0 (1 standard drink = 0.6 oz pur e alcohol) Sex and Gender Information Value Date Recorded Sex Assigned at Not on file Legal Sex Male 3:28 PM ELECTRIC GAS APPLIANCES DEMONSTRATOR Gender Identity Not on file Sexual Orientation Not on file Last Filed Vital Signs Vital Sign Reading Time Taken Comments Blood Pressure 133/81 05/11/2021 10:08 AM ELECTRIC GAS APPLIANCES DEMONSTRATOR Pulse 102 05/11/2021 10:08 AM ELECTRIC GAS APPLIANCES DEMONSTRATOR Temperature 36.4 C (97.5 F) 05/11/2021 10:08 AM ELECTRIC GAS APPLIANCES DEMONSTRATOR Respiratory Rate - - Oxygen Saturation - - Inhaled Oxygen Concentration - - Weight 107 kg (236 lb) 05/11/2021 10:08 AM ELECTRIC GAS APPLIANCES DEMONSTRATOR Height 179 cm (5' 10.47) 05/11/2021 10:08 AM CS T Body Mass Index 33.41 05/11/2021 10:08 AM ELECTRIC GAS APPLIANCES DEMONSTRATOR Plan of Treatment Health Maintenance Due Date Last Done Comments DIABETES ANNUAL FOOT EXAM 1964 DIABETES ANNUAL RETINAL EXAM 1964 DIABETES HBA1C Q 6 MONTHS 1964 DIABETES MICROALBUMIN ANNUAL SCREEN 1964 LDL CHOLESTEROL ANNUAL 1964 DTAP/TDAP/TD VACCINES (1 - Tdap) 1965 PNEUMOCOCCAL VACCINE 50+ YEA RS (1 of 2 - PCV) 1965 ZOSTER VACCINE (1 of 2) 1996 RSV VACCINE (60+ or ) (1 - 1-dose 75+ series) 2021 COVID-19 Vaccine (3 - season) 2024, 08/06/2020 INFLUENZA VACCINE (#1) 2025 Insurance Care Teams Sports Lawyer Relationship Specialty Start Date End Date Martine Starr MD [address] [place] [address] PCP - General Family Practice 04/26/21
[2025-01-12 08:50] LABS: Hematocrit 44.0 % (42.0-52.0); Hemoglobin 14.1 g/dL (14.0-18.0); Immature Granulocyte Percent A 0.6 % (0-0.5); Lymphocytes Absolute Auto 1.06 K/mm3 (0.9-3.2); Mean Corpuscular HGB Conc 32.0 g/dl (32-36); Mean Corpuscular Hemoglobin 27.7 pg (26-34); Mean Corpuscular Volume 86.4 fl (80-100); Nucleated Red Blood Cells Absolute Auto 0.000 K/mm3 (0.0-0.012); Nucleated Red Blood Cells Perc 0.0 % (0.0-0.2); Platelet Count Result 243 k/mm3 (150-375); Red Blood Count 5.09 M/mm3 (4.6-6.20); White Blood Count 6.6 K/mm3 (4.5-10.0)
[2025-01-12 09:15] LABS: Alanine Aminotransferase 23 U/L (6-50); Albumin Level 4.3 g/dL (3.5-5.1); Alkaline Phosphatase 60 U/L (38-126); Anion Gap 11 mmol/L (4-12); Aspartate Amino Transferase 37 U/L (17-59); Bilirubin,Total 0.5 mg/dL (0.2-1.3); Blood Urea Nitrogen 27 mg/dL (9-20); Calcium 9.2 mg/dL (8.4-10.2); Carbon Dioxide 23 mmol/L (22-30); Chloride 102 mmol/L (98-107); Cholesterol 142 mg/dL (0-200); Estimated Glomerular Filt Rate > 60; Glucose 131 mg/dL (65-110); HDL Direct 36 mg/dL; Potassium 3.9 mmol/L (3.4-5.0); Sodium 136 mmol/L (137-145); Total Protein 7.4 g/dL (6.3-8.2); Triglycerides 247 mg/dL (<150)
[2025-01-12 09:26] LABS: Hemoglobin A1C 6.5 % (<5.7)
[2025-01-12 09:28] LABS: MALB Creatinine Ratio 150.8 mg/g (0-30)
[2025-01-12 09:50] LABS: Prostate Specific Antigen 3.5 ng/mL (< OR = 4.0)
== END 2025-01-12 07:58 | disposition home or self-care (01) ==
PROVIDERS: PCP Family Medicine; Visit Provider Student in an Organized Health Care Education/Training Program
DX: E11.42 Type 2 diabetes mellitus with diabetic polyneuropathy (principal); I10 Essential (primary) hypertension; E78.5 Hyperlipidemia, unspecified; Z12.5 Encounter for screening for malignant neoplasm of prostate; R53.83 Other fatigue
CPT/HCPCS: 36415; 80053; 80061; 82043; 83036; 84153; 85025; G0103

== ENCOUNTER 2025-02-18 07:48 | Outpatient (CLI) | payer MEDICARE, SELFPAY ==
--- OUTSIDE RECORDS SUMMARY | 2025-02-18 08:05 | XMS_ITS | Clinical Summary ---
Author Organization [facility] [place] [address] Address [address] [place] [address] Care Team Providers Care Machine Plaster Mixer Name Role Phone Martine Starr MD Primary Care Provider [phone] Allergies No known active allergies Medications metoprolol [...] a associated with type 2 diabetes mellitus ([facility]) 10/18/2015 Overview (09/14/2016): DM type 2 with diabetic dyslipidemia Chronic anticoagulation 04/19/2015 Overview (09/14/2016): Chronic anticoagulation Atrial fibrillation 04/21/2014 Overview (09/14/2016): Atrial fibrillation Resolved Problems Problem Noted Date Diagnosed Date Resolved Date Encounter for therapeutic drug monitoring 05/08/2017 01/25/2022 Surgical History Surgery Date Site/Laterality Comments OTHER [...] on file 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
--- OUTSIDE RECORDS SUMMARY | 2025-02-18 08:05 | XMS_ITS | Clinical Summary ---
Author Organization [email or web address] Address [address] [place] [address] Care Team Providers Care Parts Picker Name Role Phone Lucila Dale MD Primary Care Provider + [phone] Abad Gutierrez MD Unavailable [phone] Source Comments [email or web address],non-owned Affiliates and Associated Physician Practices is amultiple site organization consisting of ambulatory clinics and hospital sitesin [place], [place], [place] and [place]. This disclosure is being madepursuant to the Care Everywhere program and may not contain all information available regarding this patient. Last updated 18.[email or web address] Allergies No known active allergies Medications * [...] CDT Oxygen Saturation 99% 07/20/2021 11:42 AM WASTE MANAGEMENT ENGINEER Inhaled Oxygen Concentration - - Weight 104.3 kg (230 lb) 05/20/2021 10:19 AM WASTE MANAGEMENT ENGINEER Height 182.9 cm (6') 05/20/2021 10:19 AM WASTE MANAGEMENT ENGINEER Body Mass Index 31.19 05/20/2021 10:19 AM WASTE MANAGEMENT ENGINEER Plan of Treatment Health Maintenance Due Date [...] MEDICARE ADV MANAGED MEDICARE ADV Care Teams Parts Picker Relationship Specialty Start Date End Date Lucila Dale MD PCP - General Family Medicine 01/10/19 Abad Gutierrez MD [address] [place] [address] Cardiovascular Disease 05/20/21
--- OUTSIDE RECORDS SUMMARY | 2025-02-18 08:05 | XMS_ITS | Encounter Summary ---
Author Organization [facility] Health Address [address] [place] [address] Care Team Providers Care Skin Care Instructor Name Role Phone Lucila Dale MD Primary Care Provider + [phone] Martine Starr MD Unavailable Abad Gutierrez MD Unavailable [phone] Encounter Details Date Type Department Care Team (Late st Contact Info) Description 05/20/2021 [facility] Outpatient Visit [facility] [address] [place] [address] Jay Manuel MD [address] [place] [address] Social History Tobacco Use Types [...] on filedocumented in this encounter Care Teams Skin Care Instructor Relationship Specialty Start Date End Date Lucila Dale MD PCP - General Family Medicine 01/10/19 Martine tSarr MD [address] [place], [place] [id number] Family Medicine 05/20/21 05/20/21 Abad Gutierrez MD [address] [facility] [address] [place] [address] Cardiovascular Disease 05/20/21 documented as of this encounter
--- OUTSIDE RECORDS SUMMARY | 2025-02-18 08:05 | XMS_ITS | Clinical Summary ---
Author Organization [facility] Address [address] [place] [address] Phone Care Team Providers Care Semaphore Operator Name Role Phone Malick Blum MD Primary Care Provider [phone] Enrico Gaytan DO Unavailable [phone] Allergies No known active allergies Medications [...] Mrna, Lnp-s, Pf, 30 Mcg/0.3 Ml Dose (Ale fizer) 08/28/2020,08/06/2020 Family History Medical History Relation [...] Recently Relevant to Health Maintenance Care Teams Semaphore Operator Relationship Specialty Start Date End Date Malick Blum MD [address] [address] PCP - General Family Medicine 04/07/16 Enrico Gaytan DO [address] [address] Gastroenterology 07/31/16
--- OUTSIDE RECORDS SUMMARY | 2025-02-18 08:05 | XMS_ITS | Clinical Summary ---
Author Organization [facility] Address [address] [place] [address] Phone Care Team Providers Care Tank Stave Assembler Name Role Phone Martine Starr MD Primary Care Provider [phone] Allergies No known active allergies Medications amLODIPine-jaspal [...] on file Legal Sex Male 3:28 PM FIREWOOD CUTTER Gender Identity Not on file Sexual Orientation Not on file Last Filed Vital Signs Vital Sign Reading Time Taken Comments Blood Pressure 133/81 05/11/2021 10:08 AM FIREWOOD CUTTER Pulse 102 05/11/2021 10:08 AM FIREWOOD CUTTER Temperature 36.4 C (97.5 F) 05/11/2021 10:08 AM FIREWOOD CUTTER Respiratory Rate - - Oxygen Saturation - - Inhaled Oxygen Concentration - - Weight 107 kg (236 lb) 05/11/2021 10:08 AM FIREWOOD CUTTER Height 179 cm (5' 10.47) 05/11/2021 10:08 AM CS T Body Mass Index 33.41 05/11/2021 10:08 AM FIREWOOD CUTTER Plan of Treatment Health Maintenance Due Date [...] ) (1 - 1-dose 75+ series) 2021 INFLUENZA VACCINE (#1) 2025 COVID-19 Vaccine (3 - season) 2025, 08/06/2020 Insurance Care Teams Tank Stave Assembler Relationship Specialty Start Date End Date Martine Starr MD [address] [place] [address] PCP - General Family Practice 04/26/21
== END 2025-02-18 07:49 | disposition home or self-care (01) ==
LOC: ANHAUDASC 07:49
PROVIDERS: PCP Family Medicine; Visit Provider Student in an Organized Health Care Education/Training Program
DX: H90.3 Sensorineural hearing loss, bilateral (principal)
CPT/HCPCS: 92557; 92567